=== PATIENT | female | born 1975 | race Caucasian/White ===

== ENCOUNTER 2017-09-20 19:38 | Emergency (ER) | payer BC ==
[2017-09-20] MEDS ORDERED: HYDROcodone/ACETAMIN 5-325 MG* 1 TAB PO ONE ×2 (21:55→22:39)
[2017-09-20] MEDS ORDERED: Ondansetron ODT TAB* 4 MG SL ONE ×2 (21:55→22:38)
[2017-09-20 22:25] LABS: Urine Bacteria Absent (Absent); Urine Bilirubin Negative (Negative); Urine Glucose 2+(150 mg/dL) (Negative); Urine Nitrite Negative (Negative)
[2017-09-20 22:56] VITALS: BP 106/57
--- NOTE | 2017-09-21 00:14 | ED ---
Abdominal Pain/Female - HPI Summary HPI Summary: Patient presents to the ED with CC of umbilical hernia pain. Hx of umbilical hernia which was incidentally picked up on a CT scan while having abdominal pain several months ago. She states the pain is usually a 2-3/10 and is intermittent, worse with sitting up, lifting heavy objects or moving just right. However, today she was sneezing. She notes to 8/10 continuous pain which is not improving with rest and ibuprofen. She endorses mild nausea. Denies back pain or urinary symptoms, although she has catheters. - History of Current Complaint Chief Complaint: EDAbdPain Stated Complaint: ABD PAIN Time Seen by Provider: 09/20/17 21:27 Hx Obtained From: Patient ?: No Onset/Duration: Sudden Onset Timing: Constant Severity Initially: Mild Severity Currently: Mild Pain Intensity: 0 Pain Scale Used: 0-10 Numeric Location: Umbilical Radiates: No Character: Dull Aggravating Factor(s): Nothing Alleviating Factor(s): Nothing Associated Signs and Symptoms: Positive: Nausea - Risk Factors Ectopic Risk Factor: Maternal Age ^ 30 Ovarian Torsion Risk Factor: Negative Allergies/Adverse Reactions: Allergies Allergy/AdvReac Type Severity Reaction Status Date / Time No Known Allergies Allergy Verified 09/08/12 17:17 PMH/Surg Hx/FS Hx/Imm Hx Previously Healthy: Yes Endocrine/Hematology History: Reports: Hx Thyroid Disease Denies: Hx Diabetes Cardiovascular History: Reports: Hx Hypertension Denies: Hx Pacemaker/ICD Respiratory History: Denies: Hx Asthma History: Reports: Hx Renal Disease Sensory History: Denies: Hx Hearing Aid Psychiatric History: Denies: Hx Panic Disorder - Surgical History Surgery Procedure, Year, and Place: C SECTION 1999 - Immunization History Date of Tetanus Vaccine: utd Date of Influenza Vaccine: 07/30 Hx Pertussis Vaccination: No Immunizations Up to Date: Unable to Obtain/Confirm Infectious Disease History: No Infectious Disease History: Reports: Hx Hepatitis - CHEMICAL HEPATITIS 1999 Denies: Traveled Outside the [place] in Last 30 Days - Social History Occupation: Employed Part-time Lives: With Family Alcohol Use: Occasionally Hx Substance Use: No Substance Use Type: Reports: None Hx Tobacco Use: No Smoking Status (MU): Never Smoked Tobacco Review of Systems Constitutional: Negative Negative: Fever, Chills, Fatigue Eyes: Negative Cardiovascular: Negative Respiratory: Negative Positive: Abdominal Pain - mid abdominal pain over umbilicus Positive: no symptoms reported, see HPI Musculoskeletal: Negative Neurological: Negative Psychological: Normal All Other Systems Reviewed And Are Negative: Yes Physical Exam Triage Information Reviewed: Yes Vital Signs On Initial Exam: Initial Vitals Temp Pulse Resp BP Pulse Ox 98.3 F 83 18 142/83 100 09/20/17 19:46 09/20/17 19:46 09/20/17 19:46 09/20/17 19:46 09/20/17 19:46 Vital Signs Reviewed: Yes Appearance: Positive: Well-Appearing, Well-Nourished Skin: Positive: Warm, Skin Color Reflects Adequate Perfusion Head/Face: Positive: Normal Head/Face Inspection Eyes: Positive: EOMI, EDA, Conjunctiva Clear Neck: Positive: Supple, No Lymphadenopathy Respiratory/Lung Sounds: Positive: Clear to Auscultation, Breath Sounds Present Cardiovascular: Positive: Normal, Pulses are Symmetrical in both Upper and Lower Extremities Abdomen Description: Positive: Other: - portrusion from the umbilicus Musculoskeletal: Positive: Strength/ROM Intact Neurological: Positive: Speech Normal - [place] Coma Scale Coma Scale Total: 15 Diagnostics - Vital Signs Vital Signs Temp Pulse Resp BP Pulse Ox 09/20/17 22:55 98.6 F 72 16 106/57 97 09/20/17 19:46 98.3 F 83 18 142/83 100 - Laboratory Lab Results: Lab Results 09/20/17 Range/Units 21:30 Urine Color Straw Urine Appearance Clear Urine pH 8.0 (5-9) Ur Specific [place] 1.006 L (1.010-1.030) Urine Protein 1+(30 mg/dl) H (Negative) Urine Ketones Negative (Negative) Urine Blood 1+ H (Negative) Urine Nitrate Negative (Negative) Urine Bilirubin Negative (Negative) Urine Urobilinogen Negative (Negative) Ur Leukocyte Esterase Negative (Negative) Urine WBC (Auto) Trace(0-5/hpf) (Absent) Urine RBC (Auto) 1+(3-5/hpf) H (Absent) Ur Squamous Epith Cells Present H (Absent) Urine Bacteria Absent (Absent) Urine Glucose 2+(150 mg/dl) H (Negative) Lab Statement: Any lab studies that have been ordered have been reviewed, and results considered in the medical decision making process. Abdominal Pain Fem Course/Dx - Course Course Of Treatment: During the course of treatment, patient is evaluated for umbilical hernia. She notes to pain only when moving and standing. If supine, patient is comfortable. On physical exam, she has renal catheters and is currently on dialysis. Denies urinary symptoms or other abdominal pain. Pain is 8/10 worse with movement and discretely located over the umbilicus. On exam , there is noted to be a portrusion only herniated while sitting and will reduce when lying supine. The hernia is reducible with no signs of incarceration. No discolorations or temperature changes to the area. No fevers , sweats, or chills. Patient is eating and drinking OK. Urinating well. She is encouraged to follow up with surgeon and discussed the changing/differing hernias and return precautions. She is given pain medications and nausea medications. She is Ok with discharge and will follow up with surgery. She understands to return if discolorations, worsening pain or temperature changes occur. - Diagnoses Provider Diagnoses: Umbilical hernia Discharge - Discharge Plan Condition: Stable Disposition: HOME Prescriptions: HYDROcodone/ACETAMIN 5-325 MG* [Camilla 5-325 TAB*] 1 tab PO Q4H PRN #10 tab MDD 6 PRN Reason: Pain Ondansetron ODT TAB* [Zofran 4 MG Odt TAB*] 4 mg PO Q6H PRN #12 tab.odt MDD 4 PRN Reason: Nausea Patient Education Materials: Umbilical Hernia (ED) Referrals: Aureliano Cook MD [Medical Doctor] - Jina Hernández NP [Primary Care Provider] - Additional Instructions: Please follow up with surgery about the umbilical hernia I believe you will need it repaired , while not in the emergent setting - sooner than later Hydrocodone and Zofran: We will start the Hydrocodone-Acetaminophen 5/325 (NORCO) medication This is an opiod and as discussed, has more side effects than tramadol including constipation Do not drive or operate machinery with this medication You may want to avoid other activities while on this medication until you know how it affects you If you develop any shortness of breath, altered mental status, confusion, lethargy or decreased or slowed breathing - you need to STOP this medication and return to the ED immediately. PLEASE only take this medication if your pain is not well controlled on TYLENOL alone. However, if you choose to take this medication, you MUST stop the tylenol as this medication has Tylenol within it. I am also giving you Zofran. This is an anti-nausea medication and dissolves under the tongue. You may take this at the first onset of nausea or 30 minutes prior to taking your NORCO to prevent opioid-induced nausea Do not exceed more than 4x per day. If you notice any discolorations of the skin, you need to return immediately!
== END 2017-09-20 22:55 | disposition home or self-care (01) ==
LOC: ED 19:38
DX: K42.9 Umbilical hernia without obstruction or gangrene (principal); R11.0 Nausea
CPT/HCPCS: 81003; 81015; 99282; A9270-GY

== ENCOUNTER 2018-01-23 06:06 | Day surgery (SDC) | payer BC ==
--- NOTE | 2018-01-06 19:16 | HP ---
CC: Dylon Adorno MD; Dr. Wilberto Cueto from [facility] * HISTORY AND PHYSICAL: DATE OF ADMISSION/SURGERY: 01/23/18 PRIMARY CARE PHYSICIAN: Dylon Adorno MD MOLDING MACHINE TENDER: Dr. Cueto from [facility]. ATTENDING SURGEON: Otis Her MD * (DICTATED BY ALBER PRINCE) CHIEF COMPLAINT: Umbilical hernia. HISTORY OF PRESENT ILLNESS: Mrs. Patel is a pleasant 42-year-old female who was seen in the office today to discuss umbilical hernia repair. The patient was seen at the emergency room back in September of last year with complaints of increasing pain around her umbilicus. She notes that she has had an umbilical hernia since last June that has given her some trouble on and off since then. She described occasional pain to the area with some bulging, but she has been able to quintana the hernia back every time. She denies any changes in the bowel habits. Also she described occasional episode of nausea, but no vomiting or bleeding per rectum. She was seen in the emergency room in early September and was found to have an umbilical hernia for which she was referred to the surgical practice office for further evaluation. The patient was seen by Dr. Her back in mid September and given her known history of end-stage renal disease for which she is currently on peritoneal dialysis, it was thought that the patient needed to see her credit or loans officer for clearance and to return to the office for umbilical hernia repair on elective basis. The patient notes that she put off her hernia repair for the past 3 months and things have been going well for her. She still has intermittent umbilical pain, usually worse with straining or weightlifting, but again denies any changes in the bowel habits or vomiting. She was seen in the office today to discuss umbilical hernia repair to be performed next month by Dr. Her. PAST MEDICAL HISTORY: As mentioned above, significant for: 1. End-stage renal disease from family history of polycystic kidney disease for which the patient on peritoneal dialysis since October 2016. 2. She also has history of hypertension. 3. Hypothyroidism. 4. Gastroesophageal reflux disease. PAST SURGICAL HISTORY: Significant for peritoneal dialysis catheter placement at [facility] in October 2016. She also had a in the remote past. CURRENT MEDICATIONS: Include: 1. Norvasc 10 mg p.o. daily. 2. Vitamin D3, 1000 units once a day. 3. Sensipar 30 mg 3 tablets every day. 4. Calcitriol 1 tablet by mouth every day. 5. Levothyroxine 75 mcg once daily. 6. Renvela 800 mg t.i.d. 7. Sodium bicarbonate 650 mg 2 tablets by mouth b.i.d. 8. Zantac 150 mg 1 tablet daily. ALLERGIES: She has no known drug allergies. FAMILY HISTORY: Significant for polycystic kidney disease in her family, but denies any history of colorectal malignancies. SOCIAL HISTORY: The patient is . She runs a small farm. She is a nonsmoker, who denies alcohol intake and caffeine intake is minimal. REVIEW OF SYSTEMS: See HPI, otherwise negative. She denies any headache, dizziness, blurred vision or double vision. No sore throat, cough, or shortness of breath. No chest pain, palpitation, or wheezing. She denies any back pain, flank pain, dysuria, hematuria, or urinary frequency. She admits to umbilical hernia with occasional nausea, but denies any vomiting or recent changes in the bowel habits. No fever, chills, night sweats or recent weight loss. PHYSICAL EXAMINATION VITAL SIGNS: Reveal blood pressure of 124/86, pulse of 72, respirations of 16, temperature of 98.2. She is 202 pounds on a 5 feet 2 inch frame with BMI of 37. HEENT: Head is normocephalic, atraumatic. Sclerae anicteric. PERRLA. EOMs intact. Oropharynx is pink and moist with no exudate. NECK: Supple. Trachea midline. No cervical adenopathy, thyromegaly, or JVD. LUNGS: Clear to auscultation bilaterally. HEART: Regular rate and rhythm. Normal S1 and S2 without rubs, murmurs, or gallops. BACK: Normal curvature. No CVA tenderness. BREAST EXAM: Deferred at this time. ABDOMEN: Soft, nontender, and nondistended. There is a small to medium umbilical hernia noted measuring 1.5 to 2 cm in diameter that is easily palpable and reducible. There is very minimal tenderness upon reducing the hernia. There is no surrounding erythema or induration. No other hernias or masses noted. No guarding, rigidity or rebound tenderness and Lopez's sign was negative. EXTREMITIES: Without cyanosis or clubbing. There is 1+ bilateral pedal edema noted. RECTAL: Deferred at this time. NEUROLOGIC: Grossly intact. IMPRESSION: A 42-year-old female with umbilical hernia. PLAN: We went on and discussed with the patient proceeding with umbilical hernia repair with mesh. The rationale, indications, risks and benefits of surgery were discussed with her today. Risks include but not limited to infection, bleeding or injury to adjacent structures. Given her current diagnosis of end-stage renal disease for which she does peritoneal dialysis at home, we prefer for her to see her credit or loans officer again at [facility]. She sees Dr. Wilberto Cueto, and she has an appointment with him on 01/20/18 to discuss the regimen of her dialysis in the immediate postoperative period. All her questions were answered today and she will have a readmission testing with baseline laboratory workup obtained. We will plan to see her back in 1 week in the postoperative period. ALBER PRINCE [id number]/[facility] #: [id number] CHANDA
[~2018-01-23 06:06] MED LIST: Buffered Lidocaine 0.9% SYRIN* 5 ML/SYR SYRINGE INTRADERM ONE; Metoclopramide TAB* 10 MG PO ONE; NS 0.45% 1000 ML BAG* 1,000 ML IV SCH
[2018-01-23] MEDS ORDERED: ceFAZolin 2 GM PREMIX (*) 2 GM/50 ML BAG IVPB ONE (06:17)
[2018-01-23] MEDS ORDERED: Buffered Lidocaine 0.9% SYRIN* 5 ML/SYR SYRINGE ONE (06:17)
[2018-01-23] MEDS ORDERED: Metoclopramide TAB* 10 MG ONE (06:17)
[2018-01-23] MEDS ORDERED: Ondansetron INJ* 2 MG/ML VIAL ONE ×2 (07:09→10:24)
[2018-01-23] MEDS ORDERED: Lidocaine 2% PF * 5 ML VIAL ONE (07:09)
[2018-01-23] MEDS ORDERED: Propofol* 10 MG/ML 20 ML BTL IV PUSH ONE ×3 (07:09→08:12)
[2018-01-23] MEDS ORDERED: fentaNYL* 50 MCG/ML 2 ML VIAL (100 MCG VIAL) ONE ×2 (07:09→09:23)
[2018-01-23] MEDS ORDERED: Dexamethasone IV* 4 MG/ML 1 ML (4 MG) ONE (07:09)
[2018-01-23] MEDS ORDERED: Midazolam* 1 MG/ML 10 ML VIAL (10 MG) ONE (07:09)
[2018-01-23] MEDS ORDERED: Bupivacaine 0.5%* 50 ML VIAL ONE (07:11)
[2018-01-23] MEDS ORDERED: Lidocain 1% EPI 1:100,000 * 30 ML MDV ONE (07:11)
[2018-01-23] MEDS ORDERED: Ondansetron INJ* 2 MG/ML VIAL IV PRN (07:57)
[2018-01-23] MEDS ORDERED: Naloxone* 0.4 MG/ML 1 ML VIAL IV PRN (07:57)
[2018-01-23] MEDS: fentaNYL* 50 MCG/ML 2 ML VIAL (100 MCG VIAL) IV PRN ×2 (09:25→09:34)
[2018-01-23] MEDS ORDERED: HYDROcodone/ACETAMIN 5-325 MG* 1 TAB ONE (09:29)
--- NOTE | 2018-01-23 09:54 | OP ---
CC: Dr. Dylon Adorno; Dr. Esquivel at [facility] OPERATIVE REPORT: DATE OF OPERATION: 01/23/18 DATE OF : 79 SURGEON: Otis Her MD INFUSION THERAPY NURSE: None. ANESTHESIOLOGIST: Flaco Blackburn MD ANESTHESIA: LMAC. PRE-OP DIAGNOSIS: Umbilical hernia. POST-OP DIAGNOSIS: Umbilical hernia. OPERATIVE PROCEDURE: Open umbilical hernia repair with mesh. DESCRIPTION OF PROCEDURE: The patient was supine on the operative table. After adequate intravenous sedation, compression stockings, Sami Hugger warmer, and intravenous antibiotics; the abdomen was pr epped with antiseptic and draped in a sterile fashion. Local infiltrative anesthesia was administere d and curvilinear infraumbilical incision was created. Dissection was carried down to hernia sac whi ch was about 3 cm across. The defect was below 2 cm across. The hernia is reduced and the preperito juan plane developed and an 8 cm underlay patch was utilized. This is parachuted up underneath using 0-Vicryl. This was done all around the circumference at regular intervals and then the fascia was c losed over top transversely using 0-Vicryl as well. The umbilical skin was tacked back down with 3-0 Vicryl which was also used to close the adipose and then the skin was closed with 5-0 Vicryl followe d by Steri-Strips and a gauze dressing. She tolerated the procedure well, was awakened and brought t o recovery in good condition. No complications. No drains. No pathologic specimens. Sponge and in strument counts correct. Estimated blood loss 10 mL. [id number]/[facility] #: [id number]
[2018-01-23 10:22] VITALS: BP 130/80
== END 2018-01-23 10:43 | disposition home or self-care (01) ==
LOC: OR 06:06
PROVIDERS: ATTEND Surgery
DX: K42.9 Umbilical hernia without obstruction or gangrene (principal); N18.6 End stage renal disease; Q61.3 Polycystic kidney, unspecified; I10 Essential (primary) hypertension; E03.9 Hypothyroidism, unspecified; K21.9 Gastro-esophageal reflux disease without esophagitis; D64.9 Anemia, unspecified
CPT/HCPCS: 81025; A9270-GY; C1781; J0690; J1100; J2250; J2405; J2704; J3010

== ENCOUNTER 2018-02-22 23:27 | Emergency (ER) | payer BC ==
[2018-02-23 01:07] LABS: ABS Basophils 0.1 10^3/ul (0-0.2); ABS Eosinophils 0.4 10^3/ul (0-0.6); ABS Lymphocytes 2.6 10^3/ul (1.0-4.8); ABS Monocytes 0.7 10^3/ul (0-0.8); ABS Neutrophils 6.1 10^3/ul (1.5-7.7); ABS Nucleated RBC 0 10^3/ul; Eosinophil % 3.6 % (0-6); Hematocrit 30 % (35-47); Hemoglobin 10.4 g/dl (12.0-16.0); Lymphocyte % 26.7 % (25-47); Mean Corpuscular HGB Conc 35 g/dl (31-36); Mean Corpuscular Hemoglobin 32 pg (27-31); Mean Corpuscular Volume 92 fL (80-97); Mean Platelet Volume 7.8 um3 (7.4-10.4); Nucleated Red Blood Cells % 0; Platelet Count 223 10^3/ul (150-450); Red Blood Count 3.28 10^6/ul (4.0-5.4); Red Cell Distribution Width 13 % (10.5-15); White Blood Count 9.9 10^3/ul (3.5-10.8)
[2018-02-23 01:26] LABS: EGFR Non-African American 5.5 (>60)
[2018-02-23 01:51] LABS: INR 0.89 (0.77-1.02)
[2018-02-23] MEDS ORDERED: cefTRIAXone(*) 2 GM in NS 0.9% 100 ML* 100 ML IVPB ONE (05:35)
--- NOTE | 2018-02-23 06:29 | ED ---
Monty Tripp Jennifer, scribed for Ubaldo Cardenas MD on 02/23/18 at 0044 . GI/ HPI - HPI Summary HPI Summary: The patient is a 42 year old female who presents with blood in catheter at 23: 00 last night. The patient began peritoneal dialysis one year ago in January 2017. She reports she was initiating the draining cycle and went to bypass when she noticed the whole catheter was red. The patient complains of a burning/ pulling sensation around the umbilical region and nausea. She denies chills, vomiting. - History of Current Complaint Chief Complaint: EDGeneral Stated Complaint: Peritoneal dialysis catheter issue Hx Obtained From: Patient Onset/Duration: Started Hours Ago - 2 hours, Still Present Timing: Lasting Hours - 2 hours Severity: Mild Current Severity: Mild Pain Intensity: 0 Location of Pain: Umbilical - burning/pulling sensation Pain Characteristics: Burning - Burning/pulling sensation Associated Signs and Symptoms: Positive: Other: - nausea. NEGATIVE: chills, vomiting Additional Signs & Symptoms: Positive: Other: - nausea. NEGATIVE: chills, vomiting Aggravating Factor(s): Nothing Alleviating Factor(s): Nothing - Allergy/Home Medications Allergies/Adverse Reactions: Allergies Allergy/AdvReac Type Severity Reaction Status Date / Time No Known Allergies Allergy Verified 02/22/18 23:35 PMH/Surg Hx/FS Hx/Imm Hx Endocrine/Hematology History: Reports: Hx Thyroid Disease, Hx Anemia Denies: Hx Diabetes Cardiovascular History: Reports: Hx Hypertension - ON MEDICATION Denies: Hx Pacemaker/ICD Respiratory History: Denies: Hx Asthma GI History: Reports: Hx Hiatal Hernia - PRESENTLY History: Reports: Hx Kidney Infection - IN THE PAST 2007, Hx Kidney Stones, Hx Renal Disease - PKD, Other Problems/Disorders - Endometrial polyps Sensory History: Reports: Hx Contacts or Glasses - GLASSES Denies: Hx Hearing Aid Opthamlomology History: Reports: Hx Contacts or Glasses - GLASSES Psychiatric History: Denies: Hx Panic Disorder - Cancer History Hx Chemotherapy: No Hx Radiation Therapy: No - Surgical History Surgery Procedure, Year, and Place: C SECTION 1999. PD CATHETR 2016 [place] Hx Anesthesia Reactions: No - Immunization History Date of Tetanus Vaccine: utd Date of Influenza Vaccine: 07/30 Infectious Disease History: No Infectious Disease History: Reports: Hx Hepatitis - CHEMICAL HEPATITIS 1999 RELATED TO A BLOOD PRESSURE MEDICATON Denies: Traveled Outside the [place] in Last 30 Days - Family History Known Family History: Negative: Respiratory Disease - Social History Alcohol Use: None Hx Substance Use: No Substance Use Type: Reports: None Hx Tobacco Use: No Smoking Status (MU): Never Smoked Tobacco Have You Smoked in the Last Year: No Review of Systems Negative: Chills Positive: Nausea, Other - burning/pulling sensation around umbilical. Negative : Vomiting Genitourinary: Other - blood in catheter All Other Systems Reviewed And Are Negative: Yes Physical Exam - Summary Physical Exam Summary: GENERAL: ~Patient is a well developed and nourished F who is lying comfortable in the stretcher. ~Patient is not in any acute respiratory distress. HEAD AND FACE: Normocephalic EYES: PERRLA, EOMI x 2. EARS: Hearing grossly intact. MOUTH: Oropharynx within normal limits. NECK: Supple, trachea is midline, no adenopathy, no JVD, no carotid bruit. CHEST: Symmetric, no tenderness at palpation LUNGS: Clear to auscultation bilaterally. No wheezing or crackles. CVS: Regular rate and rhythm, S1 and S2 present, no murmurs or gallops appreciated. ABDOMEN: Soft, mild tenderness to palpation in periumbilical area. Bowel sounds are normal. No abdominal abnormal pulsations. Genitourinary: Catheter in place, no obvious signs of redness or warmth around it. EXTREMITIES: Full ROM in all major joints, no edema, no cyanosis or clubbing. NEURO: Alert and oriented x 3. No acute neurological deficits. Speech is normal and follows commands. SKIN: Dry and warm Triage Information Reviewed: Yes Vital Signs On Initial Exam: Initial Vitals Temp Pulse Resp BP Pulse Ox 99.2 F 83 16 127/77 100 02/22/18 23:30 02/22/18 23:30 02/22/18 23:30 02/22/18 23:30 02/22/18 23:30 Vital Signs Reviewed: Yes Diagnostics - Vital Signs Vital Signs Temp Pulse Resp BP Pulse Ox 02/23/18 00:26 87 135/90 100 02/22/18 23:30 99.2 F 83 16 127/77 100 - Laboratory Lab Results: Lab Results 02/23/18 02/23/18 02/23/18 Range/Units 00:49 00:49 00:49 WBC 9.9 (3.5-10.8) 10^3/ul RBC 3.28 L (4.0-5.4) 10^6/ul Hgb 10.4 L (12.0-16.0) g/dl Hct 30 L (35-47) % MCV 92 (80-97) fL MCH 32 H (27-31) pg MCHC 35 (31-36) g/dl RDW 13 (10.5-15) % Plt Count 223 (150-450) 10^3/ul MPV 7.8 (7.4-10.4) um3 Neut % (Auto) 61.3 (38-83) % Lymph % (Auto) 26.7 (25-47) % [place] % (Auto) 7.5 H (0-7) % Eos % (Auto) 3.6 (0-6) % Baso % (Auto) 0.9 (0-2) % Absolute Neuts (auto) 6.1 (1.5-7.7) 10^3/ul Absolute Lymphs (auto) 2.6 (1.0-4.8) 10^3/ul Absolute Monos (auto) 0.7 (0-0.8) 10^3/ul Absolute Eos (auto) 0.4 (0-0.6) 10^3/ul Absolute Basos (auto) 0.1 (0-0.2) 10^3/ul Absolute Nucleated RBC 0 10^3/ul Nucleated RBC % 0 INR (Anticoag Therapy) (0.77-1.02) APTT (26.0-36.3) seconds Sodium 137 L (139-145) mmol/L Potassium 4.0 (3.5-5.0) mmol/L Chloride 105 (101-111) mmol/L Carbon Dioxide 21 L (22-32) mmol/L Anion Gap 11 (2-11) mmol/L BUN 68 H (6-24) mg/dL Creatinine 8.04 H (0.51-0.95) mg/dL Est GFR ( Amer) 7.1 (>60) Est GFR (Non-Af Amer) 5.5 (>60) BUN/Creatinine Ratio 8.5 (8-20) Glucose 101 H (70-100) mg/dL Lactic Acid 1.0 (0.5-2.0) mmol/L Calcium 8.9 (8.6-10.3) mg/dL Magnesium 2.1 (1.9-2.7) mg/dL Total Bilirubin 0.30 (0.2-1.0) mg/dL AST 10 L (13-39) U/L ALT 8 (7-52) U/L Alkaline Phosphatase 64 (34-104) U/L Ammonia (16-53) mcmol/L C-Reactive Protein 4.56 (< 5.00) mg/L Total Protein 6.2 L (6.4-8.9) g/dL Albumin 3.4 (3.2-5.2) g/dL Globulin 2.8 (2-4) g/dL Albumin/Globulin Ratio 1.2 (1-3) Lipase 39 (11.0-82.0) U/L Fluid Source Fluid Volume mL Fluid Color Fluid Appearance Fluid WBC (0 - 458674) /mcL Fluid RBC /mcL Fluid Tot Cell Count Fluid Neutrophils Fluid Cell Count Rvw By Blood Type Antibody Screen 02/23/18 02/23/18 02/23/18 Range/Units 00:49 00:49 00:50 WBC (3.5-10.8) 10^3/ul RBC (4.0-5.4) 10^6/ul Hgb (12.0-16.0) g/dl Hct (35-47) % MCV (80-97) fL MCH (27-31) pg MCHC (31-36) g/dl RDW (10.5-15) % Plt Count (150-450) 10^3/ul MPV (7.4-10.4) um3 Neut % (Auto) (38-83) % Lymph % (Auto) (25-47) % [place] % (Auto) (0-7) % Eos % (Auto) (0-6) % Baso % (Auto) (0-2) % Absolute Neuts (auto) (1.5-7.7) 10^3/ul Absolute Lymphs (auto) (1.0-4.8) 10^3/ul Absolute Monos (auto) (0-0.8) 10^3/ul Absolute Eos (auto) (0-0.6) 10^3/ul Absolute Basos (auto) (0-0.2) 10^3/ul Absolute Nucleated RBC 10^3/ul Nucleated RBC % INR (Anticoag Therapy) 0.89 (0.77-1.02) APTT 27.2 (26.0-36.3) seconds Sodium (139-145) mmol/L Potassium (3.5-5.0) mmol/L Chloride (101-111) mmol/L Carbon Dioxide (22-32) mmol/L Anion Gap (2-11) mmol/L BUN (6-24) mg/dL Creatinine (0.51-0.95) mg/dL Est GFR ( Amer) (>60) Est GFR (Non-Af Amer) (>60) BUN/Creatinine Ratio (8-20) Glucose (70-100) mg/dL Lactic Acid (0.5-2.0) mmol/L Calcium (8.6-10.3) mg/dL Magnesium (1.9-2.7) mg/dL Total Bilirubin (0.2-1.0) mg/dL AST (13-39) U/L ALT (7-52) U/L Alkaline Phosphatase (34-104) U/L Ammonia 33 (16-53) mcmol/L C-Reactive Protein (< 5.00) mg/L Total Protein (6.4-8.9) g/dL Albumin (3.2-5.2) g/dL Globulin (2-4) g/dL Albumin/Globulin Ratio (1-3) Lipase (11.0-82.0) U/L Fluid Source Fluid Volume mL Fluid Color Fluid Appearance Fluid WBC (0 - 682909) /mcL Fluid RBC /mcL Fluid Tot Cell Count Fluid Neutrophils Fluid Cell Count Rvw By Blood Type A Positive Antibody Screen Negative 02/23/18 Range/Units 05:00 WBC (3.5-10.8) 10^3/ul RBC (4.0-5.4) 10^6/ul Hgb (12.0-16.0) g/dl Hct (35-47) % MCV (80-97) fL MCH (27-31) pg MCHC (31-36) g/dl RDW (10.5-15) % Plt Count (150-450) 10^3/ul MPV (7.4-10.4) um3 Neut % (Auto) (38-83) % Lymph % (Auto) (25-47) % [place] % (Auto) (0-7) % Eos % (Auto) (0-6) % Baso % (Auto) (0-2) % Absolute Neuts (auto) (1.5-7.7) 10^3/ul Absolute Lymphs (auto) (1.0-4.8) 10^3/ul Absolute Monos (auto) (0-0.8) 10^3/ul Absolute Eos (auto) (0-0.6) 10^3/ul Absolute Basos (auto) (0-0.2) 10^3/ul Absolute Nucleated RBC 10^3/ul Nucleated RBC % INR (Anticoag Therapy) (0.77-1.02) APTT (26.0-36.3) seconds Sodium (139-145) mmol/L Potassium (3.5-5.0) mmol/L Chloride (101-111) mmol/L Carbon Dioxide (22-32) mmol/L Anion Gap (2-11) mmol/L BUN (6-24) mg/dL Creatinine (0.51-0.95) mg/dL Est GFR ( Amer) (>60) Est GFR (Non-Af Amer) (>60) BUN/Creatinine Ratio (8-20) Glucose (70-100) mg/dL Lactic Acid (0.5-2.0) mmol/L Calcium (8.6-10.3) mg/dL Magnesium (1.9-2.7) mg/dL Total Bilirubin (0.2-1.0) mg/dL AST (13-39) U/L ALT (7-52) U/L Alkaline Phosphatase (34-104) U/L Ammonia (16-53) mcmol/L C-Reactive Protein (< 5.00) mg/L Total Protein (6.4-8.9) g/dL Albumin (3.2-5.2) g/dL Globulin (2-4) g/dL Albumin/Globulin Ratio (1-3) Lipase (11.0-82.0) U/L Fluid Source Peritonial fluid Fluid Volume 3.5 mL Fluid Color [place] Fluid Appearance Cloudy Fluid WBC 79 (0 - 823078) /mcL Fluid RBC 5945 /mcL Fluid Tot Cell Count Pending Fluid Neutrophils Pending Fluid Cell Count Rvw By Pending Blood Type Antibody Screen Result Diagrams: 02/23/18 00:49 02/23/18 00:49 Lab Statement: Any lab studies that have been ordered have been reviewed, and results considered in the medical decision making process. - CT CT Abd/Pel CT Interpretation: Positive (See Comments) - Small hiatal hernia. Enlarged bilateral polycystic kidneys, many of the cysts are complex. Nonobstructing bilateral renal stones. Percutaneous dialysis catheter terminates within the left lower quadrant. Normal appendix. No evidence of intestinal obstruction, perforation, colitis, pancreatitis, acute diverticular disease, or an intra- abdominal or pelvic abscess. No free fluid. Subcutaneous edema within the lower anterior abdominal wall surrounding the umbilicus. There is mesenteric infiltration within the underlying anterior mesentery that either represent an inflammatory or infectious process. Correlate clinically. Dr. Cardenas has reviewed this report. CT Interpretation Completed By: Radiologist ALESHA Course/Dx - Course Course Of Treatment: The patient is a 42 year old female who presents with blood in catheter at 23:00 last night. Bloodwork and urinalysis obtained. CT Abd /Pel obtained. The patient recently had umbilical hernia repair surgery on 01/[address] scan shows hiatal hernia and infiltrate around the umbilicus concerning for infectious process. I spoke with Dr. Sharp (covering surgeon) who will see the patient in the ED. The patient will be signed out to Dr. Garcia pending Dr. Christian visit. - Diagnoses Provider Diagnoses: Hiatal hernia, History of surgical site infection - Physician Notifications Discussed Care Of Patient With: Erin Sharp Time Discussed With Above Provider: 05:45 Instructed by Provider To: Will See In ED Discharge - Sign-Out/Discharge Documenting (check all that apply): Sign-Out Patient Signing out patient TO: Mat Garcia - pending visit from Dr. Sharp - Discharge Plan Referrals: Jina Hernández, WOOL BATTING WORKER [Primary Care Provider] - The documentation as recorded by the Monty naqvi Jennifer accurately reflects the service I personally performed and the decisions made by , Ubaldo Cardenas MD.
--- NOTE | 2018-02-23 07:45 | CONSULT ---
Consult Consult: Surgery Consult Asked by Dr. Cardenas to evaluate a pt. with recent umbilical hernia repair and a new complaint of abd. discomfort. Ms. Patel is a 42 y.o. female who is on peritoneal dialysis who reports that last night when she went to start her PD there was some blood in the catheter. She also noted at the same time that she had a sensation of fullness at the umbilical hernia repair site and couldn't reach her finger into her belly button to clean it as she usually does. She denies pain, but notes that for a few days she has been noticing more difficulty getting in and out of the car and bending over and she relates this to the umbilicus. She has not had change in bowels and has not had a fever. She does note that she has been back to work in the past 2 wks and at the same time increased the volume of the dialysis fluid by 200 cc. PMHx: ESRD on PD, polycystic kidney disease Meds: Norvasc, cinacalcet, calcitriol, Vit D3, synthroid, renvela, zantac, sodium bicarb. NKDA SH: neg tob., neg. EtOH, neg. IVDA ROS: neg PE: general: WDWN female in NAD Vital Signs 02/22/18 02/23/18 02/23/18 23:30 00:26 00:56 Temperature 99.2 F Pulse Rate 83 87 90 Respiratory 16 Rate Blood Pressure 127/77 135/90 134/86 (mmHg) O2 Sat by Pulse 100 100 100 Oximetry 02/23/18 02/23/18 02/23/18 01:00 01:29 01:56 Temperature Pulse Rate 83 96 84 Respiratory Rate Blood Pressure 141/86 137/92 (mmHg) O2 Sat by Pulse 100 99 97 Oximetry 02/23/18 02/23/18 02/23/18 02:11 02:23 02:53 Temperature Pulse Rate 91 77 90 Respiratory Rate Blood Pressure 135/92 131/87 (mmHg) O2 Sat by Pulse 96 100 98 Oximetry 02/23/18 02/23/18 02/23/18 03:00 03:23 03:53 Temperature Pulse Rate 77 84 95 Respiratory Rate Blood Pressure 128/83 134/78 (mmHg) O2 Sat by Pulse 98 98 98 Oximetry 02/23/18 02/23/18 02/23/18 04:00 04:23 04:53 Temperature Pulse Rate 83 92 84 Respiratory Rate Blood Pressure 143/90 135/92 (mmHg) O2 Sat by Pulse 97 97 98 Oximetry 02/23/18 02/23/18 02/23/18 05:00 05:23 05:53 Temperature Pulse Rate 83 78 81 Respiratory Rate Blood Pressure 134/82 123/79 (mmHg) O2 Sat by Pulse 98 100 97 Oximetry 02/23/18 02/23/18 02/23/18 06:00 06:23 06:53 Temperature Pulse Rate 81 81 86 Respiratory Rate Blood Pressure 132/82 135/87 (mmHg) O2 Sat by Pulse 99 98 97 Oximetry 02/23/18 02/23/18 07:00 07:45 Temperature 98.8 F Pulse Rate 90 86 Respiratory 18 Rate Blood Pressure 130/82 (mmHg) O2 Sat by Pulse 99 97 Oximetry HEENT: anicteric sclerae, moist oral mucosa, neg. cervical adenopathy lungs: clear to ausc. heart: reg. without murmurs abd: good BS, soft, non-tender; umbilical incision healing well, no signs infection; PD cath site is clean and dry. ext: neg. cyanosis edema CT scan: some edema of the abdominal wall around the umbilicus, edema of the mesentery underlying the hernia repair Laboratory Results - last 24 hr 02/23/18 02/23/18 02/23/18 00:49 00:49 00:49 WBC 9.9 RBC 3.28 L Hgb 10.4 L Hct 30 L MCV 92 MCH 32 H MCHC 35 RDW 13 Plt Count 223 MPV 7.8 Neut % (Auto) 61.3 Lymph % (Auto) 26.7 [place] % (Auto) 7.5 H Eos % (Auto) 3.6 Baso % (Auto) 0.9 Absolute Neuts (auto) 6.1 Absolute Lymphs (auto) 2.6 Absolute Monos (auto) 0.7 Absolute Eos (auto) 0.4 Absolute Basos (auto) 0.1 Absolute Nucleated RBC 0 Nucleated RBC % 0 INR (Anticoag Therapy) APTT Sodium 137 L Potassium 4.0 Chloride 105 Carbon Dioxide 21 L Anion Gap 11 BUN 68 H Creatinine 8.04 H Est GFR ( Amer) 7.1 Est GFR (Non-Af Amer) 5.5 BUN/Creatinine Ratio 8.5 Glucose 101 H Lactic Acid 1.0 Calcium 8.9 Magnesium 2.1 Total Bilirubin 0.30 AST 10 L ALT 8 Alkaline Phosphatase 64 Ammonia C-Reactive Protein 4.56 Total Protein 6.2 L Albumin 3.4 Globulin 2.8 Albumin/Globulin Ratio 1.2 Lipase 39 Fluid Source Fluid Volume Fluid Color Fluid Appearance Fluid WBC Fluid RBC Fluid Tot Cell Count Fluid Neutrophils Fluid Lymphocytes Fluid Monocytes Blood Type Antibody Screen 02/23/18 02/23/18 02/23/18 00:49 00:49 00:50 WBC RBC Hgb Hct MCV MCH MCHC RDW Plt Count MPV Neut % (Auto) Lymph % (Auto) [place] % (Auto) Eos % (Auto) Baso % (Auto) Absolute Neuts (auto) Absolute Lymphs (auto) Absolute Monos (auto) Absolute Eos (auto) Absolute Basos (auto) Absolute Nucleated RBC Nucleated RBC % INR (Anticoag Therapy) 0.89 APTT 27.2 Sodium Potassium Chloride Carbon Dioxide Anion Gap BUN Creatinine Est GFR ( Amer) Est GFR (Non-Af Amer) BUN/Creatinine Ratio Glucose Lactic Acid Calcium Magnesium Total Bilirubin AST ALT Alkaline Phosphatase Ammonia 33 C-Reactive Protein Total Protein Albumin Globulin Albumin/Globulin Ratio Lipase Fluid Source Fluid Volume Fluid Color Fluid Appearance Fluid WBC Fluid RBC Fluid Tot Cell Count Fluid Neutrophils Fluid Lymphocytes Fluid Monocytes Blood Type A Positive Antibody Screen Negative 02/23/18 02/23/18 05:00 07:27 WBC RBC Hgb Hct MCV MCH MCHC RDW Plt Count MPV Neut % (Auto) Lymph % (Auto) [place] % (Auto) Eos % (Auto) Baso % (Auto) Absolute Neuts (auto) Absolute Lymphs (auto) Absolute Monos (auto) Absolute Eos (auto) Absolute Basos (auto) Absolute Nucleated RBC Nucleated RBC % INR (Anticoag Therapy) APTT Sodium Potassium Chloride Carbon Dioxide Anion Gap BUN Creatinine Est GFR ( Amer) Est GFR (Non-Af Amer) BUN/Creatinine Ratio Glucose Lactic Acid 1.4 Calcium Magnesium Total Bilirubin AST ALT Alkaline Phosphatase Ammonia C-Reactive Protein Total Protein Albumin Globulin Albumin/Globulin Ratio Lipase Fluid Source Peritonial fluid Fluid Volume 3.5 Fluid Color [place] Fluid Appearance Cloudy Fluid WBC 79 Fluid RBC 5945 Fluid Tot Cell Count 100 Fluid Neutrophils 16 Fluid Lymphocytes 79 Fluid Monocytes 5 Blood Type Antibody Screen A/P: 42 y.o female with symptoms of edema at hernia repair site after recent increase in activity, without overt signs of infection; blood in PD cath does not seem to be related, and is being evaluated separately. Advised pt. to watch for developing signs of infection and to call for any concerns. [email or web address]
[2018-02-23 07:46] VITALS: BP 130/82
--- NOTE | 2018-02-23 07:59 | ED ---
I, Rosa Maria Wyatt, stephon for Mat Garcia MD on 02/23/18 at 0731 . Progress - Progress Note Progress Note: This pt was a sign out at shift change from Dr. Cardenas pending visit in ED by Dr. Sharp. Course/Dx - Course Course Of Treatment: The patient is a 42 year old female who presents with blood in catheter at 23:00 last night. Bloodwork and urinalysis obtained. CT Abd /Pel obtained. The patient recently had umbilical hernia repair surgery on 01/[address] scan shows hiatal hernia and infiltrate around the umbilicus concerning for infectious process. I spoke with Dr. Sharp (covering surgeon) who will see the patient in the ED. The patient will be signed out to Dr. Garcia pending Dr. Christian visit. - Diagnoses Provider Diagnoses: Hiatal hernia, History of surgical site infection - Provider Notifications Time Discussed With Above Provider: 05:45 Instructed by Provider To: MD Will See In ED Discharge - Sign-Out/Discharge Documenting (check all that apply): Discharge/Admit/Transfer - Discharge Plan Condition: Stable Disposition: HOME Referrals: Jina Hernández, ELEMENTARY ASSISTANT TEACHER [Primary Care Provider] - Additional Instructions: FOLLOW UP WITH YOUR DOCTOR FOR THE BLEEDING FROM YOUR PERITONEAL DIALYSIS SITE. CALL YOUR CONTINUOUS IMPROVEMENT SPECIALIST TODAY FOR FOLLOW UP. RETURN TO THE EMERGENCY DEPARTMENT FOR ANY WORSENING OF YOUR CONDITION; PAIN, FEVER, YOU FEEL ILL OR QUESTIONS OR CONCERNS. - Billing Disposition and Condition Condition: STABLE Disposition: HOME The documentation as recorded by the Edmundo naqvi Stephanie accurately reflects the service I personally performed and the decisions made by me, Mat Garcia MD.
--- NOTE | 2018-02-23 10:32 | RAD ---
Indication: Abdominal pain. CT of the abdomen and pelvis was performed without IV contrast. Coronal and sagittal reconstructed images were obtained. Oral contrast was administered. The lung bases demonstrate no pleural fluid, nodules or masses. Heart is of normal size without evidence of pericardial effusion. The liver is normal in size. No focal lesions or intrahepatic ductal dilatation is noted. The spleen is normal in size. The pancreas demonstrates no mass effect or ductal dilatation. The common duct is not dilated. No adrenal lesions are noted. The kidneys demonstrate multiple innumerable cysts consistent with autosomal dominant polycystic kidney disease. There is some edema in the anterior abdominal wall especially around the umbilicus consistent with hernia repair. No dilated loops of bowel are noted. Peritoneal dialysis catheter is in place. Superficial to the anterior abdominal wall at the entrance of the peritoneal dialysis catheter is a fluid collection measuring 4.1 cm. This likely represents a seroma. Urinary bladder is unremarkable. The uterus and ovaries are unremarkable. IMPRESSION: Autosomal dominant polycystic kidney disease is noted. There is a peritoneal dialysis catheter with a seroma measuring 4.1 cm at the catheter insertion site. Edema noted in the anterior abdominal wall in the periumbilical region likely representing postoperative change.
== END 2018-02-23 07:45 | disposition home or self-care (01) ==
LOC: ED 23:27
DX: K44.9 Diaphragmatic hernia without obstruction or gangrene (principal); Z99.2 Dependence on renal dialysis; I10 Essential (primary) hypertension; R11.0 Nausea
CPT/HCPCS: 36415; 74176; 80053; 82042; 82140; 82150; 82945; 83605; 83690; 83735; 83986; 84157; 85025; 85610; 85730; 86140; 86850; 86900; 86901; 87040; 87205; 89051; 96365; 99284; J0696

== ENCOUNTER → 2018-07-30 12:55 | Day surgery (SDC) | payer MEDICARE, BC ==
[~2018-07-30 12:55] MED LIST changes: +Buffered Lidocaine 0.9% SYRIN* 5 ML/SYR SYRINGE ONE; +Lidocaine 2% PF * 5 ML VIAL ONE; -Metoclopramide TAB* 10 MG PO ONE; -NS 0.45% 1000 ML BAG* 1,000 ML IV SCH; +Naloxone* 0.4 MG/ML 1 ML VIAL IV PRN; +Ondansetron INJ* 2 MG/ML VIAL IV PRN; +Propofol* 10 MG/ML 20 ML BTL IV PUSH ONE; +Silver Nitrate/Potassium Nitr* 1 EA STICK ONE; +Sodium Citrate/Citric Acid* 15 ML UDC ONE; +fentaNYL* 50 MCG/ML 2 ML VIAL (100 MCG VIAL) ONE
[2018-07-30 13:46] LABS: EGFR Non-African American 5.3 (>60); INR 0.93 (0.77-1.02)
[2018-07-30] MEDS: fentaNYL* 50 MCG/ML 2 ML VIAL (100 MCG VIAL) IV PRN ×2 (17:06→17:25)
[2018-07-30 18:11] VITALS: BP 127/86
--- NOTE | 2018-07-31 10:16 | OP ---
OPERATIVE REPORT: DATE OF OPERATION: 07/30/18 DATE OF : 79 SURGEON: Uday Walton MD ANESTHESIA: General anesthetic with laryngeal mask. PRE-OP DIAGNOSES: Menorrhagia, intramural fibroids, and endometrial polyps. POST-OP DIAGNOSIS: Menorrhagia, intramural fibroids, and endometrial polyps. OPERATIVE PROCEDURE: Hysteroscopy, dilation and curettage. ESTIMATED BLOOD LOSS: Minimal, less than 10 cc. SPECIMENS: Sent to pathology were endometrial curettings. IV FLUIDS: She received 350 cc of IV crystalloid fluid. URINE OUTPUT: Clear, total of 100 cc. FINDINGS: Exam under anesthesia revealed normal external genitalia, normal vaginal mucosa, normal ce rvix. Uterus sounded to 11 cm in an anteverted position. Hysteroscopic findings reveal a proliferati ve endometrium with multiple endometrial polypoid lesions. DESCRIPTION OF PROCEDURE: The patient was taken to the operating room, where she was identified. Frieda lane was placed on the operating table where general anesthetic with a laryngeal mask was obtained witho ut difficulty. She was then placed in the dorsal lithotomy position, prepped and draped in normal st erile fashion. Attention was then brought on to the patient's perineum where the bladder was cathete rized and clear of urine. A weighted speculum was then inserted into the patient's vagina. The cerv ix was identified and grasped with a single-tooth tenaculum. At this point, the uterus was sounded t o 11 cm. It was noted to be in an anteverted position. The cervix was dilated with Hegar dilators. Through the cervix, a diagnostic hysteroscope was introduced. In a survey, the patient's intrauteri ne cavity revealed findings as noted above. After the diagnostic hysteroscope, I then proceeded to p erform a sharp curettage of the endometrial lining. The endometrial curettings were sent to patholog y. A second look with the hysteroscope revealed complete denudation of the endometrial cavity. At t his point, all the instruments were removed from the patient's vagina. Sponge, lap, and needle count s were correct x2. She was then transferred to the recovery room area in stable condition. [id number] #: [id number]
== END | disposition home or self-care (01) ==
LOC: OR 12:55
PROVIDERS: ATTEND Obstetrics & Gynecology
DX: N92.0 Excessive and frequent menstruation with regular cycle (principal); N84.0 Polyp of corpus uteri; Z68.39 Body mass index [BMI] 39.0-39.9, adult; N18.6 End stage renal disease; Z99.2 Dependence on renal dialysis; E03.9 Hypothyroidism, unspecified; D64.9 Anemia, unspecified; I12.9 Hypertensive chronic kidney disease with stage 1 through stage 4 chronic kidney disease, or unspecified chronic kidney disease
CPT/HCPCS: 36415; 80048; 85610; 85730; 88305; A9270-GY; J2704; J3010